=== PATIENT | male | born 1995 | race Caucasian/White ===

== ENCOUNTER 2016-09-29 23:27 | Emergency (ER) | payer OTHER ==
[~2016-09-29] VITALS: Ht 190.5 cm; Wt 94.5 kg
[~2016-09-29 23:27] MED LIST: BACTRIM,SEPT1 TABLET PO; FLOMAX0.4 MG PO; PERCOCET 5/31 TABLET PO; TORADOL10 MG PO; ZOFRAN4 MG PO
[2016-09-30] MEDS ORDERED: PROAIR HFA8.5 GM IH (01:28)
[2016-09-30 01:50] VITALS: BP 141/70
== END 2016-09-30 01:51 | disposition home or self-care (01) ==
LOC: EME 23:27
DX: J98.2 Interstitial emphysema (principal); R07.81 Pleurodynia; J40 Bronchitis, not specified as acute or chronic; J02.9 Acute pharyngitis, unspecified; F17.200 Nicotine dependence, unspecified, uncomplicated
CPT/HCPCS: 71020; 87651 90; 94640; 94664; 99281; 99284; J8540

== ENCOUNTER 2016-10-01 21:50 | Emergency (ER) | payer OTHER ==
[~2016-10-01] VITALS: Ht 190.5 cm; Wt 93.7 kg
[~2016-10-01 21:50] MED LIST changes: +PROAIR HFA8.5 GM IH
[2016-10-01 23:00] LABS: INFLUENZA A VIRAL ANTIGEN NEGATIVE; INFLUENZA B VIRAL ANTIGEN NEGATIVE
[2016-10-01 23:10] LABS: HEMATOCRIT 48.5 % (38.0-50.0); MCH 29.2 PG (29.0-34.0); MCHC 33.8 G/DL (30.0-36.0); MCV 86.3 FL (86-99); MEAN PLAT.VOLUME 10.5 uM^3 (9.0-12.4); PLATELET COUNT 266 K/uL (156-360); RBC DIS.WIDTH-CV 12.2 % (11.8-14.6); RBC DIS.WIDTH-SD 38.9 % (39-53); RED BLOOD COUNT 5.62 M/uL (4.00-5.50); WHITE BLOOD COUNT 10.9 K/uL (4.1-10.2)
[2016-10-01 23:20] LABS: CHLORIDE 104 mEq/L (99-109); INTER. NORMALIZED RATIO 1.1; POTASSIUM 4.1 mEq/L (3.7-5.4); PROTHROMBIN TIME 11.7 (9.2-11.2); PTT 30.3 (25-32); SODIUM 141 mEq/L (136-147)
[2016-10-01 23:22] LABS: GLUCOSE 82 mg/dL (70-99)
[2016-10-01 23:23] LABS: ANION GAP 11 MEQ/L (2-14)
[2016-10-01 23:26] LABS: GFR ESTIMATE (CALCULATED) > 59 mL/min/
[2016-10-01 23:27] LABS: UREA NITROGEN (BUN) 13 mg/dL (9-23)
[2016-10-01 23:30] LABS: TROP-I INTERPRETATION NEGATIVE; TROPONIN-I < 0.01 ng/mL (0.0-0.30)
[2016-10-02] MEDS ORDERED: HYCODAN SYRUP480 ML PO (02:55)
[2016-10-02] MEDS ORDERED: NORCO 5/3251 TABLET PO (02:55)
[2016-10-02] MEDS ORDERED: NAPROSYN500 MG PO (02:55)
[2016-10-02 03:22] VITALS: BP 120/72
== END 2016-10-02 03:22 | disposition home or self-care (01) ==
LOC: EME 21:50
PROVIDERS: Emergency Medicine
DX: J98.2 Interstitial emphysema (principal); J06.9 Acute upper respiratory infection, unspecified; F17.200 Nicotine dependence, unspecified, uncomplicated
CPT/HCPCS: 70491; 71020; 71250; 71260; 80048; 84484; 85027; 85610; 85730; 86850; 86900; 86901; 87502; 93005; 99281; 99285; J7030